=== PATIENT | female | born 1950 | race Caucasian/White ===

== ENCOUNTER 2018-12-15 21:40 | Emergency (ER) | payer MEDICARE ==
[~2018-12-15 21:40] MED LIST: ISOVUE-370 76%-LOCM 1 ML ONE
--- NOTE | 2018-12-15 22:37 | CT ---
BRAIN CT WITHOUT IV CONTRAST: 12/15/18 HISTORY: Headache. Pain all over. Weakness. COMPARISON: 09/07/17. FINDINGS: No focal mass or midline shift. No intra or extra-axial hemorrhage. Sinuses and mastoids are clear. IMPRESSION: No acute intracranial process. No mass or bleed. Stable from prior study. POS: [facility]
[2018-12-15 22:48] LABS: #Eosinphils 0.2 thou/uL (0.0-0.7); #Lymphocytes 0.9 thou/uL (1.20-3.40); #Monocytes 0.3 thou/uL (0.11-0.59); #Neutrophils 9.8 thou/uL (1.40-6.50); %Basophils 0.1 % (0.0-1.0); %Eosinophils 1.4 % (0.0-10.0); %Lymphocytes 8.4 % (21.0-51.0); %Neutrophils 87.1 % (42.0-75.0); Hemoglobin 11.2 g/dL (12.0-16.0); Mean Corpuscular HGB CONC 35.9 g/dL (32.0-36.0); Mean Corpuscular Hemoglobin 35.2 pg (27.0-31.0); Mean Corpuscular Volume 98.1 fL (78.0-98.0); Mean Platelet Volume 7.1 fL (7.4-10.4); Platelet Count 300 thou/uL (130-400); RBC Distribution Width 11.4 % (11.5-14.5); Red Blood Cell (RBC) Count 3.17 mill/uL (4.20-5.40); White Blood Cell (WBC) Count 11.2 thou/uL (4.8-10.8)
--- NOTE | 2018-12-15 22:55 | CT ---
HEAD CTA WITH 3D RENDERING: NECK CTA WITH 3D RENDERIN12/15/18 HISTORY: Headache, pain all over, weakness. CT ANGIOGRAM HEAD WITH 3D RENDERING: Both right and left vertebral arteries and basilar artery are smaller in caliber. There is some vascu lar calcifications involving the intracranial internal carotid arteries, evidence for carotid artery vascular disease. No evidence for major branch occlusion. No evidence for an aneurysm. No evidence fo r acute hemorrhage. IMPRESSION: No significant acute process. Somewhat small caliber right and left vertebral arteries and basilar ar rosita. No major branch occlusion or evidence for an aneurysm. NECK CTA WITH 3D RENDERING: Using NASCET criteria, there is no evidence for significant stenosis involving the right or left vert ebral, common carotid artery, internal carotid artery, or external carotid artery in the neck. No andria dence or adenopathy or soft tissue mass. IMPRESSION: Unremarkable neck CT angiogram. The right vertebral is somewhat smaller in caliber than the left. POS: [facility]
--- NOTE | 2018-12-15 22:59 | RAD ---
UPRIGHT PORTABLE CHEST ONE VIEW: 12/15/18 HISTORY: Right sided chest pain, headache, and difficulty breathing. Heart size is within normal limits. Monit or leads overlie the chest. Mild linear parenchymal changes in the lung bases which have a chronic ap pearance and are stable from 09/07/17 study. IMPRESSION: Stable mild basilar chronic changes. No acute intrathoracic disease. Atherosclerosis of the aorta. POS: [facility]
[2018-12-15 23:10] LABS: ALT (SGPT) 22 U/L (8-55); AST (SGOT) 26 U/L (5-34); Albumin 3.5 g/dL (3.4-4.8); Alkaline Phosphatase 82 U/L (40-150); Anion Gap 10 mmol/L (10-20); BUN (Urea Nitrogen) 7 mg/dL (9.8-20.1); Bilirubin, Total 0.5 mg/dL (0.2-1.2); Calc. Creatinine Clearance 0 mL/min (70-130); Calcium 8.6 mg/dL (7.8-10.44); Carbon Dioxide 26 mmol/L (23-31); Chloride 105 mmol/L (98-107); Estimated GFR-MDRD 80; Globulin 1.8 g/dL (2.4-3.5); Glucose 101 mg/dL (80-115); Potassium 3.2 mmol/L (3.5-5.1); Protein, Total 5.3 g/dL (6.0-8.3); Sodium 138 mmol/L (136-145)
[2018-12-15] MEDS ORDERED: diphenhydrAMINE 25 MG CAP ONE (23:24)
[2018-12-15] MEDS ORDERED: Acetaminophen 500 MG TAB ONE (23:24)
[2018-12-15] MEDS ORDERED: Metoclopramide HCl 10 MG/2 ML VIAL ONE (23:24)
== END 2018-12-16 00:41 | disposition home or self-care (01) ==
LOC: ERS 21:40
DX: R51 Headache (principal); R07.9 Chest pain, unspecified; E78.5 Hyperlipidemia, unspecified; F32.9 Major depressive disorder, single episode, unspecified
CPT/HCPCS: 36415; 70450; 70496; 70498; 71045; 80053; 84484; 85025; 93005; 96361; 96365; J2765; Q0163; Q9966

== ENCOUNTER 2019-01-21 08:05 | Outpatient (CLI) | payer MEDICARE ==
--- NOTE | 2019-01-21 10:07 | BD ---
DEXA BONE DENSITY STUDY: HISTORY: Postmenopausal. BMD (g/cm2) T-SCORE LEFT FEMORAL NECK 0.590 -2.3 TOTAL 0.752 -1.6 RIGHT FEMORAL NECK 0.727 -1.1 TOTAL 0.761 -1.5 IMPRESSION: Osteopenia of the right and left femoral neck. POS: [facility]
--- NOTE | 2019-01-21 13:42 | MMO ---
Bilateral MAMMO Bilat Screen [facility]. CLINICAL HISTORY: Patient is 68 years old and is seen for screening. The patient has the following family history of breast cancer: sister, at age 50. The patient has no personal history of cancer. VIEWS: The views performed were: bilateral craniocaudal with tomosynthesis and bilateral mediolateral oblique with tomosynthesis. FILMS COMPARED: The present examination has been compared to prior imaging studies performed at [facility] on 11/17/2009, 05/30/2011, 07/16/2015 and 08/23/2016, and at [facility] on 10/15/2003 and 03/28/2005. MAMMOGRAM FINDINGS: The breasts are heterogeneously dense, which could obscure a lesion on mammography. There are benign appearing calcifications seen in both breasts. There are no suspicious masses, calcifications or areas of architectural distortion. IMPRESSION: CALCIFICATIONS IN BOTH BREASTS ARE BENIGN. A ROUTINE FOLLOW-UP MAMMOGRAM IN 1 YEAR IS RECOMMENDED. THE RESULTS OF THIS EXAM WERE SENT TO THE PATIENT. ACR BI-RADS Category 2 - Benign finding MAMMOGRAPHY NOTE: 1. A negative mammogram report should not delay a biopsy if a dominant of clinically suspicious mass is present. 2. Approximately 10% to 15% of breast cancers are not detected by mammography. 3. Adenosis and dense breasts may obscure an underlying neoplasm.
== END 2019-01-21 08:06 | disposition home or self-care (01) ==
LOC: BICMAMMO 08:05
PROVIDERS: ATTEND Specialist
DX: Z12.31 Encounter for screening mammogram for malignant neoplasm of breast (principal); M85.851 Other specified disorders of bone density and structure, right thigh; M85.852 Other specified disorders of bone density and structure, left thigh; R92.1 Mammographic calcification found on diagnostic imaging of breast; Z80.3 Family history of malignant neoplasm of breast
CPT/HCPCS: 77063; 77067; 77080

== ENCOUNTER 2019-07-18 15:35 | Outpatient (CLI) | payer MEDICARE ==
--- NOTE | 2019-07-18 16:33 | MRI ---
MRI BRAIN NONCONTRAST: DATE: 07/18/2019 HISTORY: 69-year-old female with CVA: Visual disturbance and numbness of left hand and left toes. FINDINGS: There is no obstructive hydrocephalus. There is no midline shift or any other evidence of mass effect . There is no extra-axial fluid collection. There are mild chronic ischemic white matter changes due to microvascular atherosclerosis. There is otherwise no major intra-axial signal abnormality, rec ent hemorrhage, or restricted diffusion. IMPRESSION: 1) mild chronic ischemic white matter changes. 2) otherwise negative
== END 2019-07-18 15:36 | disposition home or self-care (01) ==
LOC: SCSMRI 15:35
PROVIDERS: ATTEND Psychiatry & Neurology Neurology
DX: I63.9 Cerebral infarction, unspecified (principal)
CPT/HCPCS: 70551

== ENCOUNTER 2019-12-16 09:40 | Outpatient (CLI) | payer MEDICARE ==
--- NOTE | 2019-12-16 10:08 | RAD ---
PA AND LATERAL VIEWS CHEST: Date: 12/16/2019 HISTORY: Dyspnea. FINDINGS: Comparison made with exam of 12/15/2018. The heart size is borderline. No lobar consolidation, pneumothoraces, or pleural effusions are seen. There is no evidence of zuleyka pulmonary edema. There are changes of vertebroplasty in the lumbar spin e. IMPRESSION: No radiographic evidence of acute cardiopulmonary process. POS: [facility]
== END 2019-12-16 09:41 | disposition home or self-care (01) ==
LOC: BICRAD 09:40
PROVIDERS: ATTEND Specialist
DX: R06.00 Dyspnea, unspecified (principal)
CPT/HCPCS: 71046

== ENCOUNTER 2021-09-07 12:00 | Outpatient (CLI) | payer MEDICARE | END 2021-09-07 12:01 | disposition home or self-care (01) | LOC: BICMAMMO 12:00 | PROVIDERS: ATTEND Internal Medicine | DX: Z12.31 Encounter for screening mammogram for malignant neoplasm of breast (principal); Z80.3 Family history of malignant neoplasm of breast | CPT/HCPCS: 77063; 77067 ==

== ENCOUNTER 2022-10-19 08:56 | Emergency (ER) | payer MEDICARE ==
[2022-10-19] MEDS ORDERED: methylPREDNISolone Sod Succ/PF 125 MG/2 ML VIAL ONE (10:17)
[2022-10-19] MEDS ORDERED: diphenhydrAMINE 12.5 MG/5 ML UDCUP ONE (11:09)
[2022-10-19] MEDS ORDERED: diphenhydrAMINE 50 MG/ML VIAL ONE (11:10)
[2022-10-19 11:19] LABS: SARS-CoV-2 NAA Rapid Test Not Detected (NotDetected)
[2022-10-19 11:36] LABS: #Eosinphils 0.1 thou/uL (0.0-0.7); #Lymphocytes 1.1 thou/uL (1.20-3.40); #Monocytes 0.7 thou/uL (0.11-0.59); #Neutrophils 6.4 thou/uL (1.40-6.50); %Basophils 0.4 % (0.0-1.0); %Eosinophils 1.5 % (0.0-10.0); %Lymphocytes 13.3 % (21.0-51.0); %Monocytes 7.8 % (0.0-10.0); %Neutrophils 77.1 % (42.0-75.0); Hemoglobin 14.2 g/dL (12.0-16.0); Mean Corpuscular HGB CONC 34.9 g/dL (32.0-36.0); Mean Corpuscular Hemoglobin 31.7 pg (27.0-31.0); Mean Corpuscular Volume 90.7 fl (78.0-98.0); Mean Platelet Volume 6.6 fL (7.4-10.4); Platelet Count 353 10x3/uL (130-400); RBC Distribution Width 11.4 % (11.5-14.5); White Blood Cell (WBC) Count 8.4 10x3/uL (4.8-10.8)
[2022-10-19 11:49] LABS: Anion Gap 13 mmol/L (10-20); BUN (Urea Nitrogen) 8 mg/dL (9.8-20.1); Calc. Creatinine Clearance 0 mL/min (70-130); Carbon Dioxide 22 mmol/L (23-31); Chloride 103 mmol/L (98-107); Estimated GFR 67; Glucose 117 mg/dL (80-115); Potassium 4.2 mmol/L (3.5-5.1); Sodium 134 mmol/L (136-145)
== END 2022-10-19 13:53 | disposition left against medical advice (07) ==
LOC: ERS 08:56
DX: Z53.21 Procedure and treatment not carried out due to patient leaving prior to being seen by health care provider (principal)
CPT/HCPCS: 0241U; 71045; 80048; 85025; 85379; 36415; 96372; J1200; J2930; J7620; Q0163

== ENCOUNTER 2022-12-17 13:40 | Inpatient (IN) | payer MEDICARE ==
[~2022-12-17 13:40] MED LIST changes: -ISOVUE-370 76%-LOCM 1 ML ONE; +Iopamidol-370 76% 500 ML 1 ML ONE
[2022-12-17] MEDS ORDERED: cefTRIAXone\\ROCEPHIN 2 GM VIAL ONE (14:16)
[2022-12-17] MEDS ORDERED: Azithromycin 500 MG VIAL ONE (14:16)
[2022-12-17 14:34] LABS: #Eosinphils 0.1 thou/uL (0.0-0.7); #Lymphocytes 1.1 thou/uL (1.20-3.40); #Monocytes 0.8 thou/uL (0.11-0.59); #Neutrophils 5.5 thou/uL (1.40-6.50); %Basophils 0.1 % (0.0-1.0); %Eosinophils 1.6 % (0.0-10.0); %Lymphocytes 15.1 % (21.0-51.0); %Monocytes 10.1 % (0.0-10.0); %Neutrophils 73.1 % (42.0-75.0); Hemoglobin 11.6 g/dL (12.0-16.0); Mean Corpuscular HGB CONC 33.9 g/dL (32.0-36.0); Mean Corpuscular Volume 91.3 fl (78.0-98.0); Mean Platelet Volume 7.5 fL (7.4-10.4); Platelet Count 303 10x3/uL (130-400); RBC Distribution Width 11.5 % (11.5-14.5); Red Blood Cell (RBC) Count 3.75 mill/uL (4.20-5.40); White Blood Cell (WBC) Count 7.5 10x3/uL (4.8-10.8)
[2022-12-17 15:09] LABS: ALT (SGPT) 16 U/L (8-55); AST (SGOT) 21 U/L (5-34); Albumin 3.5 g/dL (3.4-4.8); Alkaline Phosphatase 107 U/L (40-110); Anion Gap 11 mmol/L (10-20); BUN (Urea Nitrogen) 11 mg/dL (9.8-20.1); Bilirubin, Total 0.4 mg/dL (0.2-1.2); Calc. Creatinine Clearance 0 mL/min (70-130); Calcium 8.7 mg/dL (7.8-10.44); Carbon Dioxide 26 mmol/L (23-31); Chloride 104 mmol/L (98-107); Estimated GFR 84; Globulin 3.3 g/dL (2.4-3.5); Glucose 104 mg/dL (80-115); Potassium 3.2 mmol/L (3.5-5.1); Protein, Total 6.8 g/dL (5.8-8.1); Sodium 138 mmol/L (136-145)
[2022-12-17 15:51] LABS: Bilirubin Negative (Negative); Blood, Urine Negative (Negative); Clarity Clear (Clear); Glucose, Urine (Dipstick) Normal (Negative); Ketone, Urine Negative (Negative); Leukocyte Negative Leu/uL (Negative); Nitrite Negative (Negative); Protein, Urine (Dipstick) Negative (Neg-Trace); Specific Gravity, Urine 1.015 (1.002-1.036); Urobilinogen Normal mg/dL (Less than 2)
[2022-12-17] MEDS ORDERED: Ketorolac Tromethamine 30 MG/ML VIAL ONE (16:51)
[2022-12-17] MEDS ORDERED: Ondansetron PF 4 MG/2 ML Vial IVP PRN (19:15)
[2022-12-17] MEDS ORDERED: Ondansetron ODT 4 MG TAB SL PRN (19:15)
[2022-12-17] MEDS ORDERED: Zolpidem Tartrate 5 MG TAB PO PRN (23:32)
[2022-12-17] MEDS ORDERED: Senokot S 8.6-50 MG TAB PO PRN (23:32)
[2022-12-17] MEDS ORDERED: Ipratropium/Albuterol 3 ML NEB NEB PRN (23:35)
[2022-12-18] MEDS: Sodium Chloride 0.9% 1,000 ML IV SCH ×2 (00:09→10:38)
[2022-12-18 00:48] VITALS: BMI 23.3
[2022-12-18] MEDS: metroNIDAZOLE 500 MG in Premix Bag 1 BAG IVPB SCH ×3 (01:55→17:29)
[2022-12-18] MEDS: Acetaminophen 325 MG TAB PO PRN ×2 (04:39→15:26)
[2022-12-18 05:22] LABS: Bacteria/HPF None Seen HPF (None Seen); Bilirubin Negative (Negative); Blood, Urine Negative (Negative); Clarity Clear (Clear); Glucose, Urine (Dipstick) Normal (Negative); Ketone, Urine Negative (Negative); Leukocyte Negative Leu/uL (Negative); Nitrite Negative (Negative); Protein, Urine (Dipstick) Negative (Neg-Trace); RBC/HPF 0-3 HPF (0-3); Specific Gravity, Urine 1.007 (1.002-1.036); Squamous Epithelial 0-3 HPF (0-3); Urobilinogen Normal mg/dL (Less than 2); WBC/HPF 0-3 HPF (0-3)
[2022-12-18] MEDS: Levothyroxine Sodium 100 MCG TAB PO SCH (05:57)
[2022-12-18 07:25] LABS: Anion Gap 11 mmol/L (10-20); BUN (Urea Nitrogen) 6 mg/dL (9.8-20.1); Calc. Creatinine Clearance 82 mL/min (70-130); Calcium 8.4 mg/dL (7.8-10.44); Carbon Dioxide 23 mmol/L (23-31); Cardiac Risk 1.5 (Less than 4.5); Chloride 107 mmol/L (98-107); Cholesterol 66 mg/dl (< 200 Desired); Estimated GFR 94; Glucose 96 mg/dL (80-115); HDL Cholesterol 44 mg/dL (>60 Neg Risk); LDL Cholesterol, Calculated 8 mg/dL; Potassium 3.2 mmol/L (3.5-5.1); Sodium 138 mmol/L (136-145); Triglycerides 70 mg/dL (Less than 150)
[2022-12-18 08:10] LABS: Mean Corpuscular HGB CONC 35.6 g/dL (32.0-36.0); Mean Corpuscular Hemoglobin 32.1 pg (27.0-31.0); Mean Platelet Volume 7.4 fL (7.4-10.4); Platelet Count 288 10x3/uL (130-400); RBC Distribution Width 11.4 % (11.5-14.5); Red Blood Cell (RBC) Count 3.44 mill/uL (4.20-5.40); White Blood Cell (WBC) Count 5.5 10x3/uL (4.8-10.8)
[2022-12-18] MEDS: Famotidine 20 MG TAB PO SCH ×2 (09:13→20:34)
[2022-12-18] MEDS: Losartan 25 MG TAB PO SCH (09:15)
[2022-12-18] MEDS: Sertraline 100 MG TAB PO SCH (09:18)
[2022-12-18 10:43] LABS: Eosinophils 5 % (0-10); Lymphocytes 21 % (21-51); MDiff Complete? YES; Monocytes 11 % (0-10); Neutrophil 61 % (42-75); Platelet Morphology Comment Appears Adequate; Reactive Lymphocytes 1 % (0-10)
[2022-12-18] MEDS ORDERED: Colchicine 0.6 MG TAB PO SCH ×3 (11:30→13:00)
[2022-12-18] MEDS ORDERED: cloNIDine 0.1 MG TAB PO SCH (15:15)
[2022-12-18] MEDS: cloNIDine 0.1 MG TAB PO PRN (17:28)
[2022-12-18] MEDS ORDERED: ALPRAZolam 0.5 MG TAB PO SCH (18:30)
[2022-12-18] MEDS: ALPRAZolam 0.5 MG TAB PO SCH (20:30)
[2022-12-18] MEDS: traZODone HCl 150 MG TAB PO SCH (20:31)
[2022-12-18] MEDS: sulfaSALAzine 500 MG TAB PO SCH (20:31)
[2022-12-18] MEDS: Rosuvastatin 20 MG TAB PO SCH (20:32)
[2022-12-18] MEDS: QUEtiapine 300 MG TAB PO SCH (20:32)
[2022-12-19] MEDS: metroNIDAZOLE 500 MG in Premix Bag 1 BAG IVPB SCH ×3 (01:44→17:34)
[2022-12-19] MEDS: Levothyroxine Sodium 100 MCG TAB PO SCH (05:29)
[2022-12-19] MEDS: Losartan 25 MG TAB PO SCH (08:46)
[2022-12-19] MEDS: sulfaSALAzine 500 MG TAB PO SCH ×4 (08:46→20:03)
[2022-12-19] MEDS: Famotidine 20 MG TAB PO SCH ×2 (08:46→20:04)
[2022-12-19] MEDS: Sertraline 100 MG TAB PO SCH (08:46)
[2022-12-19 09:08] LABS: #Eosinphils 0.4 thou/uL (0.0-0.7); #Lymphocytes 1.7 thou/uL (1.20-3.40); #Monocytes 0.8 thou/uL (0.11-0.59); #Neutrophils 2.5 thou/uL (1.40-6.50); %Basophils 0.8 % (0.0-1.0); %Lymphocytes 30.8 % (21.0-51.0); %Monocytes 14.5 % (0.0-10.0); %Neutrophils 45.8 % (42.0-75.0); Hemoglobin 11.1 g/dL (12.0-16.0); Mean Corpuscular HGB CONC 33.6 g/dL (32.0-36.0); Mean Corpuscular Hemoglobin 30.3 pg (27.0-31.0); Mean Corpuscular Volume 90.1 fl (78.0-98.0); Mean Platelet Volume 7.1 fL (7.4-10.4); Platelet Count 347 10x3/uL (130-400); RBC Distribution Width 11.4 % (11.5-14.5); Red Blood Cell (RBC) Count 3.67 mill/uL (4.20-5.40); White Blood Cell (WBC) Count 5.4 10x3/uL (4.8-10.8)
[2022-12-19] MEDS ORDERED: Potassium Chloride 20 MEQ TAB PO SCH ×2 (10:15→12:00)
[2022-12-19] MEDS: Sodium Chloride 0.9% 1,000 ML IV SCH (12:39)
[2022-12-19] MEDS: ALPRAZolam 0.5 MG TAB PO SCH ×2 (14:38→20:03)
[2022-12-19] MEDS: Potassium Chloride 20 MEQ TAB PO SCH (16:50)
[2022-12-19] MEDS: Rosuvastatin 20 MG TAB PO SCH (20:04)
[2022-12-19] MEDS: traZODone HCl 150 MG TAB PO SCH (20:04)
[2022-12-19] MEDS: Acetaminophen 325 MG TAB PO PRN (20:04)
[2022-12-19] MEDS: QUEtiapine 300 MG TAB PO SCH (20:04)
[2022-12-20] MEDS: metroNIDAZOLE 500 MG in Premix Bag 1 BAG IVPB SCH ×3 (03:00→17:41)
[2022-12-20] MEDS: Levothyroxine Sodium 100 MCG TAB PO SCH (05:06)
[2022-12-20] MEDS: Sodium Chloride 0.9% 1,000 ML IV SCH ×2 (05:08→12:23)
[2022-12-20 07:32] LABS: Hemoglobin 11.4 g/dL (12.0-16.0); Mean Corpuscular HGB CONC 34.9 g/dL (32.0-36.0); Mean Corpuscular Hemoglobin 31.4 pg (27.0-31.0); Mean Platelet Volume 6.9 fL (7.4-10.4); Platelet Count 382 10x3/uL (130-400); RBC Distribution Width 11.4 % (11.5-14.5); Red Blood Cell (RBC) Count 3.62 mill/uL (4.20-5.40); White Blood Cell (WBC) Count 4.3 10x3/uL (4.8-10.8)
[2022-12-20 07:38] LABS: Anion Gap 11 mmol/L (10-20); BUN (Urea Nitrogen) 7 mg/dL (9.8-20.1); Calc. Creatinine Clearance 74 mL/min (70-130); Calcium 8.8 mg/dL (7.8-10.44); Carbon Dioxide 23 mmol/L (23-31); Chloride 109 mmol/L (98-107); Estimated GFR 88; Glucose 91 mg/dL (80-115); Potassium 3.4 mmol/L (3.5-5.1); Sodium 140 mmol/L (136-145)
[2022-12-20] MEDS: Losartan 25 MG TAB PO SCH (08:46)
[2022-12-20] MEDS: ALPRAZolam 0.5 MG TAB PO SCH ×3 (08:46→20:06)
[2022-12-20] MEDS: sulfaSALAzine 500 MG TAB PO SCH ×4 (08:46→20:07)
[2022-12-20] MEDS: Famotidine 20 MG TAB PO SCH ×2 (08:47→20:07)
[2022-12-20] MEDS: Sertraline 100 MG TAB PO SCH (08:47)
[2022-12-20] MEDS: Potassium Chloride 20 MEQ TAB PO SCH ×2 (08:47→16:50)
[2022-12-20 09:06] LABS: Band 2 % (5-11); Eosinophils 9 % (0-10); Lymphocytes 40 % (21-51); MDiff Complete? YES; Monocytes 13 % (0-10); Neutrophil 32 % (42-75); Platelet Morphology Comment Appears Adequate; RBC Morphology Normal; Reactive Lymphocytes 3 % (0-10)
[2022-12-20] MEDS: methylPREDNISolone Sod Succ 40 MG VIAL IVP SCH ×2 (12:18→17:36)
[2022-12-20] MEDS: Rosuvastatin 20 MG TAB PO SCH (20:07)
[2022-12-20] MEDS: traZODone HCl 150 MG TAB PO SCH (20:07)
[2022-12-20] MEDS: QUEtiapine 300 MG TAB PO SCH (20:07)
[2022-12-20] MEDS: Acetaminophen 325 MG TAB PO PRN (20:07)
[2022-12-21] MEDS: methylPREDNISolone Sod Succ 40 MG VIAL IVP SCH ×4 (00:22→17:30)
[2022-12-21] MEDS: metroNIDAZOLE 500 MG in Premix Bag 1 BAG IVPB SCH ×3 (02:25→17:30)
[2022-12-21] MEDS: Levothyroxine Sodium 100 MCG TAB PO SCH (06:02)
[2022-12-21] MEDS: Acetaminophen 325 MG TAB PO PRN (06:02)
[2022-12-21 07:52] LABS: #Lymphocytes 0.9 thou/uL (1.20-3.40); #Monocytes 0.1 thou/uL (0.11-0.59); #Neutrophils 5.8 thou/uL (1.40-6.50); %Eosinophils 0.2 % (0.0-10.0); %Lymphocytes 12.9 % (21.0-51.0); %Monocytes 1.9 % (0.0-10.0); Hemoglobin 12.5 g/dL (12.0-16.0); Mean Corpuscular HGB CONC 34.7 g/dL (32.0-36.0); Mean Corpuscular Hemoglobin 31.1 pg (27.0-31.0); Mean Corpuscular Volume 89.7 fl (78.0-98.0); Platelet Count 476 10x3/uL (130-400); RBC Distribution Width 11.4 % (11.5-14.5); Red Blood Cell (RBC) Count 4.03 mill/uL (4.20-5.40); White Blood Cell (WBC) Count 6.9 10x3/uL (4.8-10.8)
[2022-12-21 08:02] LABS: Anion Gap 14 mmol/L (10-20); BUN (Urea Nitrogen) 12 mg/dL (9.8-20.1); Calc. Creatinine Clearance 70 mL/min (70-130); Calcium 9.1 mg/dL (7.8-10.44); Carbon Dioxide 20 mmol/L (23-31); Chloride 109 mmol/L (98-107); Estimated GFR 82; Glucose 150 mg/dL (80-115); Potassium 3.2 mmol/L (3.5-5.1); Sodium 140 mmol/L (136-145)
[2022-12-21] MEDS: sulfaSALAzine 500 MG TAB PO SCH ×4 (08:04→20:36)
[2022-12-21] MEDS: Sertraline 100 MG TAB PO SCH (08:05)
[2022-12-21] MEDS: Famotidine 20 MG TAB PO SCH ×2 (08:05→20:36)
[2022-12-21] MEDS: Losartan 25 MG TAB PO SCH (08:05)
[2022-12-21] MEDS: ALPRAZolam 0.5 MG TAB PO SCH ×3 (08:05→20:36)
[2022-12-21] MEDS: Potassium Chloride 20 MEQ TAB PO SCH ×2 (08:05→16:45)
[2022-12-21 09:00] LABS: #Lymphocytes 0.9 thou/uL (1.20-3.40); #Monocytes 0.3 thou/uL (0.11-0.59); #Neutrophils 8.6 thou/uL (1.40-6.50); %Eosinophils 0.4 % (0.0-10.0); %Lymphocytes 9.3 % (21.0-51.0); %Monocytes 3.3 % (0.0-10.0); Hemoglobin 12.8 g/dL (12.0-16.0); Mean Corpuscular HGB CONC 34.5 g/dL (32.0-36.0); Mean Corpuscular Hemoglobin 30.9 pg (27.0-31.0); Mean Corpuscular Volume 89.8 fl (78.0-98.0); Mean Platelet Volume 6.8 fL (7.4-10.4); Platelet Count 479 10x3/uL (130-400); RBC Distribution Width 11.5 % (11.5-14.5); Red Blood Cell (RBC) Count 4.15 mill/uL (4.20-5.40); White Blood Cell (WBC) Count 9.9 10x3/uL (4.8-10.8)
[2022-12-21] MEDS: Sodium Chloride 0.9% 1,000 ML IV SCH (12:03)
[2022-12-21] MEDS: Rosuvastatin 20 MG TAB PO SCH (20:36)
[2022-12-21] MEDS: traZODone HCl 150 MG TAB PO SCH (20:37)
[2022-12-21] MEDS: QUEtiapine 300 MG TAB PO SCH (20:37)
[2022-12-22] MEDS: methylPREDNISolone Sod Succ 40 MG VIAL IVP SCH ×3 (00:01→11:14)
[2022-12-22] MEDS: metroNIDAZOLE 500 MG in Premix Bag 1 BAG IVPB SCH ×2 (02:55→09:04)
[2022-12-22] MEDS: Levothyroxine Sodium 100 MCG TAB PO SCH (06:22)
[2022-12-22 07:39] LABS: Anion Gap 13 mmol/L (10-20); BUN (Urea Nitrogen) 12 mg/dL (9.8-20.1); Calc. Creatinine Clearance 71 mL/min (70-130); Calcium 9.1 mg/dL (7.8-10.44); Carbon Dioxide 21 mmol/L (23-31); Chloride 110 mmol/L (98-107); Estimated GFR 83; Glucose 146 mg/dL (80-115); Potassium 3.2 mmol/L (3.5-5.1); Sodium 141 mmol/L (136-145)
[2022-12-22] MEDS: cloNIDine 0.1 MG TAB PO PRN (08:09)
[2022-12-22] MEDS: Losartan 25 MG TAB PO SCH (08:09)
[2022-12-22 08:13] VITALS: TEMP 98
[2022-12-22] MEDS: Sertraline 100 MG TAB PO SCH (08:52)
[2022-12-22] MEDS: Potassium Chloride 20 MEQ TAB PO SCH (08:53)
[2022-12-22] MEDS: sulfaSALAzine 500 MG TAB PO SCH (08:54)
[2022-12-22] MEDS: Famotidine 20 MG TAB PO SCH (08:54)
[2022-12-22] MEDS: ALPRAZolam 0.5 MG TAB PO SCH (08:55)
[2022-12-22 11:33] VITALS: BP 152/78
== END 2022-12-22 12:19 | disposition home or self-care (01) | DRG 871 ==
LOC: ERS 13:40 → T4-B 17:10 → OBSVTOIN 12-19 15:28
PROVIDERS: ADMIT Specialist; ATTEND Specialist
DX: A41.9 Sepsis, unspecified organism (principal); J18.9 Pneumonia, unspecified organism; I10 Essential (primary) hypertension; G43.909 Migraine, unspecified, not intractable, without status migrainosus; E03.9 Hypothyroidism, unspecified; G47.00 Insomnia, unspecified; N32.81 Overactive bladder; F41.1 Generalized anxiety disorder; E78.00 Pure hypercholesterolemia, unspecified; K52.89 Other specified noninfective gastroenteritis and colitis; Z90.49 Acquired absence of other specified parts of digestive tract; Z90.710 Acquired absence of both cervix and uterus; Z90.09 Acquired absence of other part of head and neck; Z79.890 Hormone replacement therapy; Z79.899 Other long term (current) drug therapy
CPT/HCPCS: 36415; 71045; 71046; 74177; 80048; 80053; 80061; 81001; 81003; 83605; 84550; 85025; 85652; 87040; 93005; 96361; 96365; 96367; 96372; 96375; 96376; G0378; J0456; J0696; J1650; J1885; J1956; J2920; J7050; Q9967; U0003; U0005

== ENCOUNTER 2023-02-10 15:01 | Inpatient (IN) | payer MEDICARE ==
[2023-02-10 15:40] LABS: #Basophils 0.1 thou/uL (0.0-0.2); #Eosinphils 0.3 thou/uL (0.0-0.7); #Lymphocytes 1.5 thou/uL (1.20-3.40); #Monocytes 0.6 thou/uL (0.11-0.59); #Neutrophils 2.6 thou/uL (1.40-6.50); %Basophils 1.1 % (0.0-1.0); %Eosinophils 6.7 % (0.0-10.0); %Lymphocytes 29.9 % (21.0-51.0); %Monocytes 11.7 % (0.0-10.0); %Neutrophils 50.6 % (42.0-75.0); Hemoglobin 10.7 g/dL (12.0-16.0); Mean Corpuscular HGB CONC 34.3 g/dL (32.0-36.0); Mean Platelet Volume 7.1 fL (7.4-10.4); Platelet Count 290 10x3/uL (130-400); RBC Distribution Width 12.8 % (11.5-14.5); Red Blood Cell (RBC) Count 3.07 mill/uL (4.20-5.40)
[2023-02-10 16:05] LABS: ALT (SGPT) 11 U/L (8-55); AST (SGOT) 21 U/L (5-34); Albumin 4.3 g/dL (3.4-4.8); Alkaline Phosphatase 95 U/L (40-110); Anion Gap 14 mmol/L (10-20); BUN (Urea Nitrogen) 6 mg/dL (9.8-20.1); Bilirubin, Total 0.5 mg/dL (0.2-1.2); Calc. Creatinine Clearance 0 mL/min (70-130); Carbon Dioxide 20 mmol/L (23-31); Chloride 104 mmol/L (98-107); Estimated GFR 71; Globulin 3.1 g/dL (2.4-3.5); Glucose 89 mg/dL (80-115); Potassium 3.3 mmol/L (3.5-5.1); Protein, Total 7.4 g/dL (5.8-8.1); Sodium 135 mmol/L (136-145)
[2023-02-10] MEDS ORDERED: Nitroglycerin 2% Ointment 1 INCH/1 GM Packet ONE (16:14)
[2023-02-10 21:38] LABS: Troponin I Less than 0.010 ng/mL (< 0.028)
[2023-02-10] MEDS ORDERED: Ondansetron ODT 4 MG TAB PO PRN (21:55)
[2023-02-10] MEDS ORDERED: Acetaminophen 650 MG Suppository PR PRN (21:55)
[2023-02-10] MEDS ORDERED: Acetaminophen 325 MG TAB PO PRN (21:55)
[2023-02-10] MEDS ORDERED: Nitroglycerin 0.4 MG TAB (25 Tab Bottle) SL PRN (21:55)
[2023-02-10] MEDS ORDERED: Ondansetron PF 4 MG/2 ML Vial IVP PRN (21:55)
[2023-02-11 00:47] LABS: Troponin I Less than 0.010 ng/mL (< 0.028)
[2023-02-11] MEDS ORDERED: cloNIDine 0.1 MG TAB PO PRN (01:17)
[2023-02-11] MEDS ORDERED: Losartan 25 MG TAB PO SCH (01:30)
[2023-02-11] MEDS ORDERED: Hydrochlorothiazide 25 MG TAB PO SCH ×2 (01:30→09:00)
[2023-02-11 04:36] LABS: #Basophils 0.1 thou/uL (0.0-0.2); #Eosinphils 0.3 thou/uL (0.0-0.7); #Lymphocytes 1.5 thou/uL (1.20-3.40); #Monocytes 0.9 thou/uL (0.11-0.59); #Neutrophils 3.8 thou/uL (1.40-6.50); %Basophils 0.8 % (0.0-1.0); %Eosinophils 4.7 % (0.0-10.0); %Lymphocytes 23.1 % (21.0-51.0); %Monocytes 14.2 % (0.0-10.0); %Neutrophils 57.2 % (42.0-75.0); Hemoglobin 11.5 g/dL (12.0-16.0); Mean Corpuscular HGB CONC 33.8 g/dL (32.0-36.0); Mean Corpuscular Hemoglobin 34.5 pg (27.0-31.0); Mean Platelet Volume 7.5 fL (7.4-10.4); Platelet Count 301 10x3/uL (130-400); RBC Distribution Width 12.8 % (11.5-14.5); Red Blood Cell (RBC) Count 3.35 mill/uL (4.20-5.40); White Blood Cell (WBC) Count 6.7 10x3/uL (4.8-10.8)
[2023-02-11 04:58] LABS: Anion Gap 15 mmol/L (10-20); BUN (Urea Nitrogen) 6 mg/dL (9.8-20.1); Calc. Creatinine Clearance 0 mL/min (70-130); Calcium 9.4 mg/dL (7.8-10.44); Carbon Dioxide 20 mmol/L (23-31); Chloride 108 mmol/L (98-107); Estimated GFR 72; Glucose 97 mg/dL (80-115); Magnesium 2.3 mg/dL (1.6-2.6); Potassium 3.6 mmol/L (3.5-5.1); Sodium 139 mmol/L (136-145)
[2023-02-11 07:54] VITALS: BMI 22.8
[2023-02-11] MEDS ORDERED: ADENOSINE 60 MG/20 ML SDV ONE (11:02)
[2023-02-11 11:40] LABS: Iron 81 ug/dL (50-170); Iron Binding Capacity, Total 263 mcg/dL (265-497)
[2023-02-11] MEDS: Aspirin Chewable 81 MG TAB PO SCH (13:46)
[2023-02-11] MEDS ORDERED: Simethicone Chewable 80 MG TAB PO SCH (14:45)
[2023-02-11 14:49] LABS: Free T4 (Free Thyroxine) 0.94 ng/dL (0.70-1.48)
[2023-02-11 15:49] LABS: Bacteria/HPF None Seen HPF (None Seen); Bilirubin Negative (Negative); Blood, Urine Negative (Negative); CAUTI Indications for Culture Alt mental st,lethar; Clarity Clear (Clear); Glucose, Urine (Dipstick) Normal (Negative); Ketone, Urine Negative (Negative); Leukocyte Negative Leu/uL (Negative); Nitrite Negative (Negative); Protein, Urine (Dipstick) Negative (Neg-Trace); RBC/HPF 0-3 HPF (0-3); Specific Gravity, Urine 1.015 (1.002-1.036); Squamous Epithelial None Seen HPF (0-3); Urobilinogen Normal mg/dL (Less than 2); WBC/HPF 0-3 HPF (0-3); pH, Urine 7.5 (5.0-9.0)
[2023-02-11 15:52] LABS: Urine Culture Reflex No No
[2023-02-11] MEDS: Simethicone Chewable 80 MG TAB PO SCH ×2 (18:08→21:10)
[2023-02-11] MEDS: QUEtiapine 300 MG TAB PO SCH (21:10)
[2023-02-11] MEDS: Rosuvastatin 20 MG TAB PO SCH (21:11)
[2023-02-12] MEDS ORDERED: Levothyroxine Sodium 100 MCG TAB PO SCH (06:00)
[2023-02-12] MEDS: Simethicone Chewable 80 MG TAB PO SCH ×4 (08:36→21:44)
[2023-02-12] MEDS: Aspirin Chewable 81 MG TAB PO SCH (08:37)
[2023-02-12] MEDS ORDERED: Losartan 25 MG TAB PO SCH ×2 (09:00)
[2023-02-12] MEDS ORDERED: Pantoprazole 40 MG VIAL IVP SCH (09:00)
[2023-02-12] MEDS: QUEtiapine 300 MG TAB PO SCH (21:42)
[2023-02-12] MEDS: Losartan 25 MG TAB PO SCH (21:43)
[2023-02-12] MEDS: Rosuvastatin 20 MG TAB PO SCH (21:43)
[2023-02-13 05:29] LABS: Anion Gap 14 mmol/L (10-20); BUN (Urea Nitrogen) 15 mg/dL (9.8-20.1); Calc. Creatinine Clearance 47 mL/min (70-130); Carbon Dioxide 20 mmol/L (23-31); Cardiac Risk 4.8 (Less than 4.5); Chloride 106 mmol/L (98-107); Cholesterol 211 mg/dl (< 200 Desired); Estimated GFR 52; Glucose 99 mg/dL (80-115); HDL Cholesterol 44 mg/dL (>60 Neg Risk); LDL Cholesterol, Calculated 124 mg/dL; Potassium 3.3 mmol/L (3.5-5.1); Sodium 137 mmol/L (136-145); Triglycerides 214 mg/dL (Less than 150)
[2023-02-13] MEDS: Potassium Chloride 20 MEQ TAB PO SCH ×2 (08:54→18:08)
[2023-02-13] MEDS: Losartan 25 MG TAB PO SCH ×2 (09:24→20:26)
[2023-02-13] MEDS: Aspirin Chewable 81 MG TAB PO SCH (09:24)
[2023-02-13] MEDS: Simethicone Chewable 80 MG TAB PO SCH ×4 (09:24→20:26)
[2023-02-13] MEDS: Levothyroxine Sodium 125 MCG TAB PO SCH (09:24)
[2023-02-13] MEDS ORDERED: Iopamidol 370 76% 100 ML VIAL ONE (09:29)
[2023-02-13] MEDS ORDERED: Lidocaine 1% (PF) 30 ML VIAL ONE (10:17)
[2023-02-13] MEDS ORDERED: Heparin 10,000 UNITS/ 10 ML VIAL ONE (10:18)
[2023-02-13] MEDS ORDERED: Nitroglycerin 50 MG/250 ML BOT 250 ML ONE (10:18)
[2023-02-13] MEDS ORDERED: Verapamil 5 MG/2 ML VIAL ONE (10:25)
[2023-02-13] MEDS ORDERED: fentaNYL 50 mcg/mL 1 mL Vial ONE (10:26)
[2023-02-13] MEDS ORDERED: Midazolam HCl 2 mg/2 ml Vial ONE (10:26)
[2023-02-13] MEDS ORDERED: Sodium Chloride 0.9% 200 ML IV PRN (12:15)
[2023-02-13] MEDS ORDERED: Acetaminophen/Codeine 30-300mg Tablet PO PRN (12:15)
[2023-02-13] MEDS ORDERED: Sodium Chloride 0.9% 500 ML IV SCH (12:30)
[2023-02-13] MEDS: QUEtiapine 300 MG TAB PO SCH (20:26)
[2023-02-13] MEDS: Rosuvastatin 20 MG TAB PO SCH (20:26)
[2023-02-14 05:41] LABS: Band 1 % (5-11); Eosinophils 2 % (0-10); Hemoglobin 13.4 g/dL (12.0-16.0); Lymphocytes 19 % (21-51); MDiff Complete? YES; Macrocytosis SLIGHT = 6-15 cells (100X) (0-5/hpf); Mean Corpuscular HGB CONC 32.9 g/dL (32.0-36.0); Mean Corpuscular Hemoglobin 33.8 pg (27.0-31.0); Mean Platelet Volume 7.4 fL (7.4-10.4); Monocytes 14 % (0-10); Neutrophil 58 % (42-75); Platelet Count 314 10x3/uL (130-400); Platelet Morphology Comment Appears Increased; RBC Distribution Width 12.3 % (11.5-14.5); Reactive Lymphocytes 6 % (0-10); Red Blood Cell (RBC) Count 3.96 mill/uL (4.20-5.40); White Blood Cell (WBC) Count 4.9 10x3/uL (4.8-10.8)
[2023-02-14 05:42] LABS: Anion Gap 13 mmol/L (10-20); BUN (Urea Nitrogen) 16 mg/dL (9.8-20.1); Calc. Creatinine Clearance 60 mL/min (70-130); Calcium 9.8 mg/dL (7.8-10.44); Carbon Dioxide 21 mmol/L (23-31); Chloride 106 mmol/L (98-107); Estimated GFR 70; Glucose 87 mg/dL (80-115); Potassium 3.8 mmol/L (3.5-5.1); Sodium 136 mmol/L (136-145)
[2023-02-14] MEDS: Levothyroxine Sodium 125 MCG TAB PO SCH (05:54)
[2023-02-14] MEDS: Potassium Chloride 20 MEQ TAB PO SCH ×2 (10:21→18:40)
[2023-02-14] MEDS: Aspirin Chewable 81 MG TAB PO SCH (10:22)
[2023-02-14] MEDS: Losartan 25 MG TAB PO SCH ×2 (10:23→20:13)
[2023-02-14] MEDS: Simethicone Chewable 80 MG TAB PO SCH ×4 (10:24→20:13)
[2023-02-14] MEDS: Rosuvastatin 20 MG TAB PO SCH (20:13)
[2023-02-14] MEDS: QUEtiapine 300 MG TAB PO SCH (20:13)
[2023-02-15] MEDS: Levothyroxine Sodium 125 MCG TAB PO SCH (06:00)
[2023-02-15] MEDS: Losartan 25 MG TAB PO SCH (07:35)
[2023-02-15] MEDS: Potassium Chloride 20 MEQ TAB PO SCH (07:35)
[2023-02-15] MEDS: Aspirin Chewable 81 MG TAB PO SCH (07:35)
[2023-02-15] MEDS: Simethicone Chewable 80 MG TAB PO SCH (07:36)
[2023-02-15 08:23] VITALS: BP 131/61; TEMP 97.5
== END 2023-02-15 08:55 | disposition short-term general hospital (02) | DRG 287 ==
LOC: ERS 15:01 → ERHOLD 20:07 → 2NO 02-11 07:38 → OBSVTOIN 02-12 12:22
PROVIDERS: ADMIT Student in an Organized Health Care Education/Training Program; ATTEND Internal Medicine
PROC: 4A023N7 Measurement of Cardiac Sampling and Pressure, Left Heart, Percutaneous Approach (ICD-10-PCS; principal; 2023-02-13)
PROC: B2111ZZ Fluoroscopy of Multiple Coronary Arteries using Low Osmolar Contrast (ICD-10-PCS; 2023-02-13)
PROC: B2151ZZ Fluoroscopy of Left Heart using Low Osmolar Contrast (ICD-10-PCS; 2023-02-13)
DX: R07.89 Other chest pain (principal); E87.6 Hypokalemia; I10 Essential (primary) hypertension; G43.909 Migraine, unspecified, not intractable, without status migrainosus; K21.9 Gastro-esophageal reflux disease without esophagitis; F32.A Depression, unspecified; E03.9 Hypothyroidism, unspecified; Z66 Do not resuscitate; E78.00 Pure hypercholesterolemia, unspecified; D64.9 Anemia, unspecified; Z79.899 Other long term (current) drug therapy; Z79.890 Hormone replacement therapy; Z90.49 Acquired absence of other specified parts of digestive tract; Z90.89 Acquired absence of other organs; Z90.710 Acquired absence of both cervix and uterus; I25.2 Old myocardial infarction; I25.10 Atherosclerotic heart disease of native coronary artery without angina pectoris
CPT/HCPCS: 36415; 70450; 71045; 71046; 78451; 78452; 80048; 80053; 80061; 81001; 82728; 83540; 83550; 83735; 84439; 84443; 84481; 84484; 85025; 85379; 93005; 93017; 93306; 93458; 96374; 99152; 99153; A9500; A9540; C1769; C1894; C9113; G0378; J0153; J1644; J2001; J2250; J3010; J7030; Q9967